=== PATIENT | female | born 1930 | race Caucasian/White ===

== ENCOUNTER 2021-11-29 13:29 | Emergency (ER) | payer MEDICARE ==
[~2021-11-29] VITALS: Ht 157.5 cm; Wt 59.0 kg
[2021-11-29] MEDS ORDERED: SWABABLE VALVE TRANSFER SET EA MC ONE (14:27)
[2021-11-29] MEDS ORDERED: IV NORMAL SALINE 250 ML IV ONE (14:27)
[2021-11-29] MEDS ORDERED: IOHEXOL 300MG/ML 100 ML INFUS..BTL ONE (14:27)
[2021-11-29] MEDS ORDERED: MORPHINE SULFATE 2 MG/1 ML DISP.SYRIN IV ONE (14:30)
[2021-11-29] MEDS ORDERED: IV NORMAL SALINE 1000 ML BAG IV ONE (14:30)
[2021-11-29] MEDS ORDERED: ONDANSETRON 4 MG/2 ML VIAL IV ONE (14:30)
[2021-11-29 14:48] LABS: HEMATOCRIT 32.1 % (31.2-41.9); MEAN CORPUSCULAR HEMOGLOBIN 30.2 uug (24.7-32.8); MEAN CORPUSCULAR VOLUME 87.8 fL (75.5-95.3); PLATELET COUNT (AUTO) 96 K/uL (179-408)
[2021-11-29 14:54] LABS: CARBON DIOXIDE 27 mmol/L (21-32); CHLORIDE 102 mmol/L (98-107); CREATININE 0.9 mg/dL (0.6-1.3); GLUCOSE 257 mg/dL (74-106); POTASSIUM 3.4 mmol/L (3.5-5.1); UREA NITROGEN, BLOOD 22 mg/dL (7-18)
[2021-11-29 15:03] LABS: ALANINE AMINOTRANSFERASE 61 U/L (14-59); ALKALINE PHOSPHATASE 110 U/L (50-136); ASPARTATE AMINOTRANSFERASE 12 U/L (15-37); BILIRUBIN,DIRECT 0.1 mg/dL (0.0-0.2); BILIRUBIN,TOTAL 0.3 mg/dL (0.2-1.0); LIPASE 161 U/L (73-393); TOTAL PROTEIN, SERUM 5.9 g/dL (6.4-8.2)
[2021-11-29 15:25] LABS: *BILIRUBIN,URIN NEGATIVE (NEGATIVE); *BLOOD, URINE NEGATIVE (NEGATIVE); *CLARITY,URINE CLEAR (CLEAR); *COLOR,URINE YELLOW (YELLOW); *KETONES,URINE NEGATIVE (NEGATIVE); *UROBILINOGEN,URINE 0.2 E.U./dl (NORMAL); LEUKOCYTE ESTERASE ,URINE NEGATIVE (NEGATIVE); NITRITE, URINE NEGATIVE (NEGATIVE); PH,URINE 6.5 (5.0-8.0); UGLUCOSE NEGATIVE (NEGATIVE)
--- NOTE | 2021-11-29 15:30 | NUR ---
RN to complete Contrast Consent form. CWR per RN
[2021-11-29] MEDS ORDERED: PIPERACILLIN SODIUM/TAZOBACTAM 3.375 G in IV DEXTROSE 5% 50 ML IV ONE (16:00)
[2021-11-29] MEDS ORDERED: IV NORMAL SALINE 100 ML BAG IV ONE (16:00)
--- NOTE | 2021-11-29 16:10 | NUR ---
Patient refused CT abdomen/Pelvis w/ contrast
[2021-11-29] MEDS ORDERED: DIPH-1062 PO (16:26)
[2021-11-29] MEDS ORDERED: CALC430T PO (16:26)
[2021-11-29] MEDS ORDERED: PRED20TA PO (16:26)
[2021-11-29] MEDS ORDERED: LATA5DRO EACHEYE (16:26)
[2021-11-29] MEDS ORDERED: TIMO5SOL11 EACHEYE (16:26)
[2021-11-29] MEDS ORDERED: TRAZ-257 PO (16:26)
[2021-11-29] MEDS ORDERED: ACYC400T19 PO (16:26)
[2021-11-29] MEDS ORDERED: BRIM5DRO3 EACHEYE (16:26)
[2021-11-29] MEDS ORDERED: ALLO300T2 PO (16:26)
[2021-11-29] MEDS ORDERED: LATA2.5D15 EACHEYE (16:26)
[2021-11-29] MEDS ORDERED: POLY1GRA MC (16:26)
[2021-11-29] MEDS ORDERED: FURO40TA5 PO (16:26)
[2021-11-29] MEDS ORDERED: MIRT-93 PO (16:26)
[2021-11-29] MEDS ORDERED: DORZ10DR10 EACHEYE (16:26)
[2021-11-29] MEDS ORDERED: MULT-596 PO (16:26)
[2021-11-29] MEDS ORDERED: APIX5TAB PO (16:26)
[2021-11-29] MEDS ORDERED: DIPH28CR TP (16:26)
[2021-11-29] MEDS ORDERED: DONE5TAB34 PO (16:26)
[2021-11-29] MEDS ORDERED: ONDA4TAB11 PO (16:26)
[2021-11-29] MEDS ORDERED: LEVE500T20 PO (16:26)
[2021-11-29] MEDS ORDERED: DOCU100C36 PO (16:26)
[2021-11-29] MEDS ORDERED: OLAN5TAB70 PO (16:26)
[2021-11-29] MEDS ORDERED: FERR325T28 PO (16:26)
[2021-11-29] MEDS ORDERED: PIPERACILLIN/TAZOBACTAM/D5W 50 ML IV ONE (16:54)
[2021-11-29 18:23] VITALS: BP 127/75
== END 2021-11-29 18:25 | disposition home or self-care (01) ==
LOC: ER 13:29
DX: K52.9 Noninfective gastroenteritis and colitis, unspecified (principal); C85.90 Non-Hodgkin lymphoma, unspecified, unspecified site; Z92.21 Personal history of antineoplastic chemotherapy; Z88.1 Allergy status to other antibiotic agents; Z88.3 Allergy status to other anti-infective agents; Z88.0 Allergy status to penicillin; Z88.2 Allergy status to sulfonamides; Z79.01 Long term (current) use of anticoagulants; Z79.899 Other long term (current) drug therapy
CPT/HCPCS: 36415; 71045; 74177; 80048; 80076; 81003; 83605 ×2; 83690; 84484; 85025; 87040 ×2; 87086; 93005; 96361; 96365; 99285; J2543; J7040 ×3; Q9967; A4663

== ENCOUNTER 2022-01-11 11:51 | Inpatient (IN) | payer MEDICARE ==
[~2022-01-11] VITALS: Ht 152.4 cm; Wt 58.1 kg
[~2022-01-11 11:51] MED LIST: ACYC400T19 PO; ALLO300T2 PO; APIX5TAB PO; BRIM5DRO3 EACHEYE; CALC430T PO; DIPH-1062 PO; DIPH28CR TP; DOCU100C36 PO; DONE5TAB34 PO; DORZ10DR10 EACHEYE; FERR325T28 PO; FURO40TA5 PO; LATA2.5D15 EACHEYE; LATA5DRO EACHEYE; LEVE500T20 PO; MIRT-93 PO; MULT-596 PO; OLAN5TAB70 PO; ONDA4TAB11 PO; POLY1GRA MC; PRED20TA PO; TIMO5SOL11 EACHEYE; TRAZ-257 PO
[2022-01-11] MEDS ORDERED: CEFEPIME HCL 2 G in IV DEXTROSE 5% 100 ML IV ONE (12:30)
[2022-01-11] MEDS ORDERED: IV NORMAL SALINE 500 ML BAG IV ONE ×2 (12:30→13:30)
[2022-01-11] MEDS ORDERED: CEFEPIME HCL 1 G VIAL ONE ×2 (12:44→21:42)
[2022-01-11 12:53] LABS: HEMATOCRIT 25.8 % (31.2-41.9); MEAN CORPUSCULAR HEMOGLOBIN 29.8 uug (24.7-32.8); MEAN CORPUSCULAR VOLUME 85.9 fL (75.5-95.3); PLATELET COUNT (AUTO) 147 K/uL (179-408)
--- NOTE | 2022-01-11 12:53 | NUR ---
PT IS IN ROOM #2B. DR LAZO EVALUATED THE PT.
[2022-01-11 13:00] LABS: CREATININE 0.8 mg/dL (0.6-1.3); POTASSIUM 3.4 mmol/L (3.5-5.1)
[2022-01-11] MEDS ORDERED: NEOM28.37 TP (13:09)
[2022-01-11] MEDS ORDERED: OMEP20CA15 PO (13:09)
[2022-01-11] MEDS ORDERED: MUPI22OI2 TP (13:09)
[2022-01-11] MEDS ORDERED: BENZ200C53 PO (13:09)
[2022-01-11] MEDS ORDERED: GUAI-671 PO (13:09)
[2022-01-11] MEDS ORDERED: POVI1MED TP (13:09)
[2022-01-11 13:13] LABS: BILIRUBIN,TOTAL 0.4 mg/dL (0.2-1.0); TOTAL PROTEIN, SERUM 5.9 g/dL (6.4-8.2)
[2022-01-11 13:45] LABS: *BILIRUBIN,URIN NEGATIVE (NEGATIVE); *CLARITY,URINE CLEAR (CLEAR); *COLOR,URINE YELLOW (YELLOW); *KETONES,URINE NEGATIVE (NEGATIVE); *UROBILINOGEN,URINE 0.2 E.U./dl (NORMAL); LEUKOCYTE ESTERASE ,URINE 1+ (NEGATIVE); NITRITE, URINE NEGATIVE (NEGATIVE); UGLUCOSE NEGATIVE (NEGATIVE)
[2022-01-11 13:47] LABS: *BLOOD, URINE TRACE (NEGATIVE)
[2022-01-11 15:25] LABS: BACTERIA,URINE FEW /HPF (NONE SEEN); RBC,URINE 0-3 /HPF (0-3); SQUAMOUS EPITHELIAL CELL,UR FEW /HPF (NONE SEEN)
--- NOTE | 2022-01-11 18:48 | NUR ---
REPORT WAS GIVEN [employer] MOBILITY ARCHITECT NANCY.
[2022-01-11] MEDS ORDERED: MORPHINE SULFATE 2 MG/1 ML DISP.SYRIN IV PRN (19:00)
[2022-01-11] MEDS ORDERED: ACETAMINOPHEN 325 MG TABLET PO PRN (19:00)
[2022-01-11] MEDS ORDERED: ACETAMINOPHEN 650 MG SUPP.RECT RC PRN (19:00)
[2022-01-11] MEDS ORDERED: ONDANSETRON 4 MG/2 ML VIAL IV PRN (19:00)
[2022-01-11] MEDS ORDERED: TEMAZEPAM 7.5 MG CAPSULE PO PRN (20:00)
[2022-01-11] MEDS ORDERED: VANCOMYCIN IV 1,000 MG in IV DEXTROSE 5% 250 ML IV ONE (20:00)
--- NOTE | 2022-01-11 20:00 | NUR ---
transfered patient via gurney to room 320 ,patient was received by kendall landaverde . patient went with all belonging and copy of the chart.
[2022-01-11 20:26] LABS: BAND % (MANUAL) 2 % (0-10); EOSINOPHILS % (MANUAL) 6 % (0-8); LYMPHOCYTES % (MANUAL) 44 % (20-40); MONOCYTES % (MANUAL) 22 % (2-10); NEUTROPHILS % (MANUAL) 26 % (42-75)
[2022-01-11 20:50] VITALS: BP 131/66
[2022-01-11] MEDS: DOCUSATE SODIUM 100 MG CAPSULE PO SCH (21:00)
[2022-01-11] MEDS ORDERED: VANCOMYCIN IV 200 ML ONE (21:42)
[2022-01-11] MEDS ORDERED: CEFEPIME HCL 1 G in IV DEXTROSE 5% 50 ML IV ONE (23:00)
[2022-01-12 00:41] VITALS: BP 123/57
[2022-01-12 04:47] VITALS: BP 98/55
--- NOTE | 2022-01-12 06:44 | NUR ---
admitted to room 520; VSS; afebtrile; ambulated with assist to bathroom; pt initially [address] but 80s NSR when asleep; safety maintained; bed alarm on
[2022-01-12 06:52] LABS: HEMATOCRIT 27.1 % (31.2-41.9); MEAN CORPUSCULAR HEMOGLOBIN 29.5 uug (24.7-32.8); MEAN CORPUSCULAR VOLUME 85.1 fL (75.5-95.3); PLATELET COUNT (AUTO) 190 K/uL (179-408)
[2022-01-12 07:27] LABS: BILIRUBIN,TOTAL 0.5 mg/dL (0.2-1.0); CREATININE 0.8 mg/dL (0.6-1.3); POTASSIUM 2.9 mmol/L (3.5-5.1); TOTAL PROTEIN, SERUM 6.1 g/dL (6.4-8.2)
[2022-01-12 07:50] LABS: BAND % (MANUAL) 6 % (0-10); EOSINOPHILS % (MANUAL) 5 % (0-8); LYMPHOCYTES % (MANUAL) 27 % (20-40); MONOCYTES % (MANUAL) 36 % (2-10); NEUTROPHILS % (MANUAL) 26 % (42-75)
[2022-01-12 07:52] LABS: THYROID STIMULATING HORMONE 1.31 mIU/mL (0.358-3.740)
[2022-01-12 08:00] VITALS: BP 98/46
[2022-01-12] MEDS: CEFEPIME HCL 1 G in IV DEXTROSE 5% 50 ML IV SCH ×2 (09:11→21:11)
[2022-01-12] MEDS ORDERED: POTASSIUM CHLORIDE 20 MEQ TAB.PRT.SR PO ONE ×3 (09:15→12:00)
[2022-01-12] MEDS: PANTOPRAZOLE SODIUM 40 MG VIAL IV SCH (09:23)
[2022-01-12] MEDS: FUROSEMIDE 20 MG/2 ML VIAL IV SCH (09:23)
[2022-01-12] MEDS ORDERED: POTASSIUM CHLORIDE 20 MEQ POWDER PACKET PO ONE (10:30)
[2022-01-12 11:15] LABS: FERRITIN 1971 ng/mL (8-252)
[2022-01-12 11:31] VITALS: BP 108/48
[2022-01-12] MEDS ORDERED: TBO-FILGRASTIM 300 MCG/0.5 ML SYRINGE SQ SCH (14:00)
[2022-01-12] MEDS ORDERED: diphenhydrAMINE 25 MG CAP PO PRN (15:30)
[2022-01-12 16:00] VITALS: BP 114/46
[2022-01-12] MEDS ORDERED: BRIMONIDINE-P 0.1% OPHTH DROP 5 ML DROPS EACHEYE SCH (17:00)
[2022-01-12] MEDS: DORZOLAMIDE 2% OPHT DROP 10 ML BOTTLE EACHEYE SCH (17:14)
[2022-01-12] MEDS: OLANZAPINE 5 MG TABLET PO SCH (17:15)
[2022-01-12] MEDS: BRIMONIDINE 0.2% OPHT DROP 10 ML BOTTLE EACHEYE SCH (17:15)
[2022-01-12 20:00] VITALS: BP 110/65
[2022-01-12] MEDS: LATANOPROST OPHT DROP 2.5 ML BOTTLE EACHEYE SCH (21:00)
[2022-01-12] MEDS: levETIRAcetam 500 MG TABLET PO SCH (21:12)
[2022-01-12] MEDS: MIRTAZAPINE 15 MG TABLET PO SCH (21:12)
[2022-01-12] MEDS: DONEPEZIL 5 MG TABLET PO SCH (21:12)
[2022-01-12] MEDS: DOCUSATE SODIUM 100 MG CAPSULE PO SCH (21:12)
[2022-01-13 05:00] VITALS: BP 103/46
[2022-01-13 06:22] LABS: HEMATOCRIT 26.9 % (31.2-41.9); MEAN CORPUSCULAR HEMOGLOBIN 29.6 uug (24.7-32.8); MEAN CORPUSCULAR VOLUME 86.4 fL (75.5-95.3); PLATELET COUNT (AUTO) 249 K/uL (179-408)
[2022-01-13 06:42] LABS: CREATININE 0.6 mg/dL (0.6-1.3); MAGNESIUM 2.1 mg/dL (1.8-2.4); PHOSPHOROUS 2.6 mg/dL (2.5-4.9); POTASSIUM 3.6 mmol/L (3.5-5.1)
[2022-01-13 06:59] LABS: NEUTROPHILS % (MANUAL) 0 % (42-75)
--- NOTE | 2022-01-13 07:35 | NUR ---
RECEIVED PT ON BED SLEEPING. PT IS ON 1L NC SATURATING AT 97%. R WRIST 22 G SALINE LOCK. PT IS AMBULATORY JUST NEED ALITTLE ASSISTANCE GOING TO THE BATHROOM. NO DISTRESS NOTED. NO SOB. WILL CONT TO MONITOR.
[2022-01-13] MEDS ORDERED: VANCOMYCIN IV 1,000 MG in IV DEXTROSE 5% 250 ML IV SCH (08:00)
[2022-01-13 08:06] LABS: *IMMUNOGLOBULIN G, SERUM 382 mg/dL (586-1602); IMMUNOGLOBULIN A, SERUM 59 mg/dL (64-422); IMMUNOGLOBULIN M, SERUM 110 mg/dL (26-217)
[2022-01-13] MEDS ORDERED: FERROUS SULFATE 325 MG TABEC PO SCH (09:00)
[2022-01-13 09:31] LABS: *RHEUMATOID FACTOR SCREEN NEGATIVE (NEGATIVE)
[2022-01-13] MEDS: CEFEPIME HCL 1 G in IV DEXTROSE 5% 50 ML IV SCH (09:38)
[2022-01-13] MEDS: TIMOLOL MALEATE XE 0.5% OPHT 5 ML BOTTLE EACHEYE SCH (09:38)
[2022-01-13] MEDS: BRIMONIDINE 0.2% OPHT DROP 10 ML BOTTLE EACHEYE SCH ×2 (09:38→17:50)
[2022-01-13] MEDS: PANTOPRAZOLE SODIUM 40 MG VIAL IV SCH (09:38)
[2022-01-13] MEDS: DORZOLAMIDE 2% OPHT DROP 10 ML BOTTLE EACHEYE SCH ×2 (09:38→17:50)
[2022-01-13] MEDS: FUROSEMIDE 20 MG/2 ML VIAL IV SCH (09:38)
[2022-01-13] MEDS: levETIRAcetam 500 MG TABLET PO SCH ×2 (09:38→20:35)
[2022-01-13 09:53] VITALS: BP 123/56
[2022-01-13 15:30] VITALS: BP 128/59
[2022-01-13] MEDS: OLANZAPINE 5 MG TABLET PO SCH (17:50)
--- NOTE | 2022-01-13 18:30 | NUR ---
NO PAIN NOTED. PT IS AWAKE AND ALERT. NO SOB NOTED. ATE 40% OF HER DINNER. ON 1 L NC SATURATING 96-97%.
[2022-01-13 20:00] VITALS: BP 130/67
[2022-01-13] MEDS: DONEPEZIL 5 MG TABLET PO SCH (20:35)
[2022-01-13] MEDS: MIRTAZAPINE 15 MG TABLET PO SCH (20:35)
[2022-01-13] MEDS: DOCUSATE SODIUM 100 MG CAPSULE PO SCH (20:38)
[2022-01-13] MEDS: LATANOPROST OPHT DROP 2.5 ML BOTTLE EACHEYE SCH (20:43)
[2022-01-13] MEDS ORDERED: CEFEPIME HCL 2 G in IV DEXTROSE 5% 100 ML IV SCH (21:00)
[2022-01-13] MEDS ORDERED: MEROPENEM 500 MG in IV NORMAL SALINE 50 ML IV ONE (22:00)
[2022-01-13] MEDS ORDERED: MEROPENEM 1 G in IV NORMAL SALINE 100 ML IV ONE (22:00)
[2022-01-14] VITALS: BP 127/66
[2022-01-14 05:00] VITALS: BP 123/66
[2022-01-14] MEDS: PANTOPRAZOLE SODIUM 40 MG TABLET.DR PO SCH (06:16)
--- NOTE | 2022-01-14 06:17 | NUR ---
Pt rested well in between care; no acute distress; repositioned for comfort; safetty maintained; needs attended; continue to monitor; continue plan of care.
[2022-01-14 06:41] LABS: MEAN CORPUSCULAR HEMOGLOBIN 29.3 uug (24.7-32.8); MEAN CORPUSCULAR VOLUME 84.9 fL (75.5-95.3); PLATELET COUNT (AUTO) 317 K/uL (179-408)
[2022-01-14 07:07] LABS: *ANTI-SCLERODERMA-70 AB <0.2 AI (0.0-0.9); *SJOGREN'S ANTI-SS-A <0.2 AI (0.0-0.9); *SJOGREN'S ANTI-SS-B <0.2 AI (0.0-0.9); *SMITH ANTIBODIES <0.2 AI (0.0-0.9); ANTI-DNA(DS) AB, QN 2 IU/mL (0-9); HEPATITIS B SURFACE AG Negative (Negative)
[2022-01-14 07:35] LABS: BILIRUBIN,TOTAL 0.3 mg/dL (0.2-1.0); CREATININE 0.7 mg/dL (0.6-1.3); PHOSPHOROUS 2.4 mg/dL (2.5-4.9); POTASSIUM 3.1 mmol/L (3.5-5.1); TOTAL PROTEIN, SERUM 5.7 g/dL (6.4-8.2)
[2022-01-14 08:08] LABS: BAND % (MANUAL) 5 % (0-10); LYMPHOCYTES % (MANUAL) 3 % (20-40); MONOCYTES % (MANUAL) 7 % (2-10); NEUTROPHILS % (MANUAL) 85 % (42-75)
--- NOTE | 2022-01-14 08:11 | NUR ---
Awake watching tv, oriented x2. No ss of pain or sob. SR on telemonitor. Received on room air spo2 94%. Breathing non labored. Dr. Hankins saw and examined the pt, updated on condition. Patient states she would like to go home today. Encouraged to wait for MD rounds. Kept comfortable. Call light in reach. Bed lowest and locked, exit alarm on. Needs attended. Safety maintained.
[2022-01-14] MEDS: levETIRAcetam 500 MG TABLET PO SCH ×2 (08:41→21:13)
[2022-01-14] MEDS: BRIMONIDINE 0.2% OPHT DROP 10 ML BOTTLE EACHEYE SCH ×2 (08:42→17:43)
[2022-01-14] MEDS: TIMOLOL MALEATE XE 0.5% OPHT 5 ML BOTTLE EACHEYE SCH (08:42)
[2022-01-14] MEDS: APIXABAN 2.5 MG TABLET PO SCH ×2 (08:42→23:59)
[2022-01-14] MEDS: FUROSEMIDE 20 MG/2 ML VIAL IV SCH (08:42)
[2022-01-14] MEDS: DORZOLAMIDE 2% OPHT DROP 10 ML BOTTLE EACHEYE SCH ×2 (08:43→17:43)
[2022-01-14 08:50] VITALS: BP 132/53
[2022-01-14 09:07] LABS: A/G RATIO 0.9 (0.7-1.7); ALBUMIN 2.7 g/dL (2.9-4.4); ALPHA-1-GLOBULIN 0.5 g/dL (0.0-0.4); BETA GLOBULIN 0.9 g/dL (0.7-1.3); GAMMA GLOBULIN 0.5 g/dL (0.4-1.8); GLOBULIN, TOTAL 2.9 g/dL (2.2-3.9); M-SPIKE Not Observed g/dL (Not Observed)
[2022-01-14] MEDS: MEROPENEM 1 G in IV NORMAL SALINE 100 ML IV SCH ×2 (09:38→21:14)
[2022-01-14] MEDS ORDERED: POTASSIUM CHLORIDE 20 MEQ POWDER PACKET PO ONE (11:00)
[2022-01-14] MEDS ORDERED: ERTA1VIA IJ (11:45)
[2022-01-14 11:58] VITALS: BP 128/50
[2022-01-14 16:13] VITALS: BP 132/61
[2022-01-14] MEDS ORDERED: NEUTRA PHOS PACKET PO ONE (16:45)
[2022-01-14] MEDS: OLANZAPINE 5 MG TABLET PO SCH (17:43)
--- NOTE | 2022-01-14 19:29 | NUR ---
Dtr Farnaz Benavides called gave numbers for primary MD and oncologist, asked to have Dr. Norris call pmd also, relayed info to Dr. Norris
--- NOTE | 2022-01-14 19:30 | NUR ---
Received pt in no acute distress. Pt on room air. Pt iv intact.Pt can make her needs known. Safety and comfort provided. Will continue to monitor.
--- NOTE | 2022-01-14 20:00 | NUR ---
Pt son called and ask for update regarding his mother. Son wants to talked to the doctor regarding the IV medication if it can be switched to oral medication so pt can still go back to her previous facility. Told son that I will put it on my notes and relay his message to the
[2022-01-14 20:17] VITALS: BP 116/68
--- NOTE | 2022-01-14 20:53 | NUR ---
Notify functional analyst regarding pt son said regarding the antibiotic if it can be switched to oral medication and that son wants to talk to him. Dr said there's no oral medication for the medication.
[2022-01-14] MEDS: LATANOPROST OPHT DROP 2.5 ML BOTTLE EACHEYE SCH (21:00)
[2022-01-14] MEDS: DONEPEZIL 5 MG TABLET PO SCH (21:13)
[2022-01-14] MEDS: DOCUSATE SODIUM 100 MG CAPSULE PO SCH (21:13)
[2022-01-14] MEDS: MIRTAZAPINE 15 MG TABLET PO SCH (21:13)
[2022-01-15] VITALS: BP 170/56
[2022-01-15 01:00] VITALS: BP 125/60
[2022-01-15 04:34] VITALS: BP 124/70
--- NOTE | 2022-01-15 05:41 | NUR ---
Pt slept intermittently. Pt in no acute distress.Pt on sinus rhythm.Pt on room air at 96%. Iv intact. Pt turned and repositioned. Offload on heels. Prescribed medication given and pt tolerated it well. Pt has episode of forgetfulness. Needs reorientation. Safety and comfort provided. All needs are met. Will endorse to incoming nurse for continuity of care.
[2022-01-15] MEDS: PANTOPRAZOLE SODIUM 40 MG TABLET.DR PO SCH (06:09)
[2022-01-15 06:13] LABS: HEMATOCRIT 27.9 % (31.2-41.9); MEAN CORPUSCULAR VOLUME 84.9 fL (75.5-95.3); PLATELET COUNT (AUTO) 318 K/uL (179-408)
[2022-01-15 07:01] LABS: CREATININE 0.6 mg/dL (0.6-1.3); MAGNESIUM 2.1 mg/dL (1.8-2.4); PHOSPHOROUS 3.5 mg/dL (2.5-4.9); POTASSIUM 3.8 mmol/L (3.5-5.1)
--- NOTE | 2022-01-15 08:04 | NUR ---
DR WILSON HERE AND SEEN PATIENT DISCUSSED WITH HIM AGAIN RE PATIENTS FAMILY DOES NOT WANT PATIENT TO GO TO THE SNF THEY WANT HER ATB TO BE CHANGED TO ORAL SO THAT SHE CAN RETURN TO [place] BUT DR WILSON STATED THAT THIS IS THE MEDICATION RECOMMENDED BY THE ID AND THAT THEY CAN CALL HIM OR CAN TAKE PATIENT TO WHICH EVER FACILITY THEY DESIRE.
[2022-01-15] MEDS ORDERED: NITR100C11 PO (08:38)
[2022-01-15] MEDS: levETIRAcetam 500 MG TABLET PO SCH (08:39)
[2022-01-15] MEDS: FUROSEMIDE 20 MG/2 ML VIAL IV SCH (08:39)
[2022-01-15] MEDS: BRIMONIDINE 0.2% OPHT DROP 10 ML BOTTLE EACHEYE SCH ×2 (08:40→17:15)
[2022-01-15] MEDS: APIXABAN 2.5 MG TABLET PO SCH (08:40)
[2022-01-15] MEDS: TIMOLOL MALEATE XE 0.5% OPHT 5 ML BOTTLE EACHEYE SCH (08:41)
[2022-01-15] MEDS: DORZOLAMIDE 2% OPHT DROP 10 ML BOTTLE EACHEYE SCH ×2 (08:41→17:15)
[2022-01-15] MEDS: MEROPENEM 1 G in IV NORMAL SALINE 100 ML IV SCH (09:36)
[2022-01-15 12:00] VITALS: BP 97/48
[2022-01-15 16:48] VITALS: BP 123/66
[2022-01-15] MEDS: OLANZAPINE 5 MG TABLET PO SCH (17:14)
--- NOTE | 2022-01-15 17:15 | NUR ---
PER THE PULLMAN CLERK PATIENTS DAUGHTER IS AGREEABLE TO HAVE PATIENT TRANSFERED TO SNF TODAY
--- NOTE | 2022-01-15 18:58 | NUR ---
CALLED [facility] AND SPOKE WITH JF AND REPORT GIVEN TO HER FOR CONTINUING CARE
--- NOTE | 2022-01-15 19:00 | NUR ---
PATIENT DISCHARGED PICKED UP BY [facility] IN SATISFACTORY CONDITION WITH DISCHARGE INSTRUCTIONS AND ALL HER PERSONAL BELONGINGS.NO SOB AT THIS TIME.
== END 2022-01-15 19:00 | DRG 871 ==
LOC: ER 11:51 → TELE3 19:38 → MEDSURG3 01-15 11:16
PROVIDERS: ADMIT Internal Medicine; ATTEND Internal Medicine
DX: A41.9 Sepsis, unspecified organism (principal); E43 Unspecified severe protein-calorie malnutrition; G92.8 Other toxic encephalopathy; J12.82 Pneumonia due to coronavirus disease 2019; U07.1 COVID-19; J96.01 Acute respiratory failure with hypoxia; C85.90 Non-Hodgkin lymphoma, unspecified, unspecified site; N39.0 Urinary tract infection, site not specified; Z16.12 Extended spectrum beta lactamase (ESBL) resistance; R65.20 Severe sepsis without septic shock; B96.20 Unspecified Escherichia coli [E. coli] as the cause of diseases classified elsewhere; D70.1 Agranulocytosis secondary to cancer chemotherapy; T45.1X5A Adverse effect of antineoplastic and immunosuppressive drugs, initial encounter; Y92.89 Other specified places as the place of occurrence of the external cause; R19.5 Other fecal abnormalities; E61.1 Iron deficiency; G40.909 Epilepsy, unspecified, not intractable, without status epilepticus; Z79.899 Other long term (current) drug therapy; H40.9 Unspecified glaucoma; E87.6 Hypokalemia; F03.90 Unspecified dementia, unspecified severity, without behavioral disturbance, psychotic disturbance, mood disturbance, and anxiety; Z87.891 Personal history of nicotine dependence; Z79.01 Long term (current) use of anticoagulants; Z90.710 Acquired absence of both cervix and uterus; Z90.49 Acquired absence of other specified parts of digestive tract; Z98.49 Cataract extraction status, unspecified eye; R50.81 Fever presenting with conditions classified elsewhere; I50.9 Heart failure, unspecified; I99.8 Other disorder of circulatory system; Z88.1 Allergy status to other antibiotic agents; Z88.0 Allergy status to penicillin; Z88.2 Allergy status to sulfonamides
CPT/HCPCS: 36415; 70030-TC; 71045; 82746; 82784; 83550; 83605; 83615; 83735; 84100; 84155; 84165; 84443; 84484; 84681; 85025; 85610; 86038; 86140; 86334; 86430; 86706; 86803; 87040; 87077; 87086; 87340; 93005; 93307; 97161; A4663; A6209; A6213; C9113; G0378; J0692; J1447; J1940; J2185; J3370; J3590; J7040; J7050